=== PATIENT | male | born 1940 | race Caucasian/White ===

== ENCOUNTER 2017-06-06 08:25 | Emergency (ER) | payer MEDICARE, OTHER ==
--- NOTE | 2017-06-06 08:37 | UC ---
Throat Pain/Nasal Del HPI - HPI Summary HPI Summary: 76 year old female presents with complains of sore throat and and right ear pain. - History of Current Complaint Chief Complaint: UCRespiratory Stated Complaint: ST, RIGHT EAR ACHE, HEADACHE Time Seen by Provider: 06/06/17 08:36 Hx Obtained From: Patient Onset/Duration: Sudden Onset Severity: Moderate - Allergies/Home Medications Allergies/Adverse Reactions: Allergies Allergy/AdvReac Type Severity Reaction Status Date / Time Propoxyphene [From Darvon] Allergy Severe THROAT Verified 06/06/17 08:31 CLOSED, CHEST PAIN Home Medications: Home Medications Aspirin [Aspirin 81 MG TAB] 1 tab DAILY 06/06/17 [History Confirmed 06/06/17] Calcitriol CAP* [Rocaltrol CAP*] 1 tab TID 06/06/17 [History Confirmed 06/06/17 ] Diclofenac 1.3% PATCH (NF) [Flector 1.3% PATCH (NF)] 1 patch BID PRN 06/06/17 [ History Confirmed 06/06/17] Evolocumab [Repatha] 1 inj SEE INSTRUCTIONS 06/06/17 [History Confirmed 06/06/17 ] Ezetimibe TAB* [Zetia TAB*] 1 tab DAILY 06/06/17 [History Confirmed 06/06/17] Gabapentin CAP(*) [Neurontin 100 mg CAP(*)] 100 mg TID 06/06/17 [History Confirmed 06/06/17] Omeprazole CAP* [Prilosec CAP* 20 MG] 40 mg DAILY 06/06/17 [History Confirmed ] Ramipril CAP* [Altace CAP*] 1 tab DAILY 06/06/17 [History Confirmed 06/06/17] Tamsulosin CAP* [Flomax CAP*] 1 tab DAILY 06/06/17 [History Confirmed 06/06/17] PMH/Surg Hx/FS Hx/Imm Hx Previously Healthy: Yes - Surgical History Surgical History: Yes Surgery Procedure, Year, and Place: RIGHT NEPHRECTOMY, ENRIQUE HERNIA REPAIR. RIGHT 5TH FINGER TENDON REPAIR. LEFT KNEE REPLACEMENT. cholecystectomy 2013 - Social History Substance Use Type: None Review of Systems Constitutional: Negative Skin: Negative Eyes: Negative ENT: Sore Throat, Ear Ache - right ear, Sinus Congestion, Sinus Pain/Tenderness Respiratory: Negative Cardiovascular: Negative Gastrointestinal: Negative Genitourinary: Negative Motor: Negative Neurovascular: Negative Musculoskeletal: Negative Neurological: Negative Psychological: Negative All Other Systems Reviewed And Are Negative: Yes Physical Exam Triage Information Reviewed: Yes Vital Signs Reviewed: Yes Eye Exam: Normal ENT: Positive: Pharyngeal erythema, Nasal congestion, Nasal drainage, Sinus tenderness Dental Exam: Normal Neck exam: Normal Neck: Positive: 1 Respiratory Exam: Normal Cardiovascular Exam: Normal Abdominal Exam: Normal Musculoskeletal Exam: Normal Neurological Exam: Normal Psychological Exam: Normal Skin Exam: Normal Throat Pain/Nasal Course/Dx - Differential Dx/Diagnosis Provider Diagnoses: sinusitis. pharyngeal erythema. right ear middle moderate effusion Discharge - Discharge Plan Condition: Stable Disposition: HOME Prescriptions: Azithromyxin GRAYSON (NF) [Z-Grayson (Zithromax) 250 mg tabs #6] 2 tab PO .TODAY, THEN 1 DAILY #6 tab Guaifenesin-Codeine [Cheratussin AC] 1 teasp PO BEDTIME PRN #120 ml MDD 5 ml PRN Reason: Cough Magic M W2 Prem/Maal/Nyst/Lido* 5 ml SWISH SPIT QID PRN #120 ml PRN Reason: Sore Throat Methylprednisolone [Medrol Dosepak 4 MG*] 4 mg PO .SEE GRAYSON INSTRUCTION #21 tab Patient Education Materials: Uvulitis (ED) Referrals: Ofelia Frias MD [Primary Care Provider] -
[2017-06-06 08:38] VITALS: BP 156/76
== END 2017-06-06 09:22 | disposition home or self-care (01) ==
LOC: UCCORT 08:25
DX: J32.9 Chronic sinusitis, unspecified (principal); J39.2 Other diseases of pharynx; H65.199 Other acute nonsuppurative otitis media, unspecified ear
CPT/HCPCS: 87651; 99212; G0463

== ENCOUNTER 2017-11-14 13:55 | Emergency (ER) | payer MEDICARE, OTHER ==
[2017-11-14 15:53] VITALS: BP 136/72
[2017-11-14] MEDS ORDERED: HYDROcodone/ACETAMIN 5-325 MG* 1 TAB PO ONE (15:59)
--- NOTE | 2017-11-14 16:25 | RAD ---
INDICATION: Right humerus injury. TECHNIQUE: 2 views of the right humerus were obtained. FINDINGS: The bones are in normal alignment. No fracture is seen. IMPRESSION: NO EVIDENCE FOR FRACTURE.
--- NOTE | 2017-11-14 17:25 | RAD ---
INDICATION: Right shoulder injury. TECHNIQUE: 4 views of the right shoulder were obtained. FINDINGS: The bones are in normal alignment. No acute fracture is seen. There is a small calcific density adjacent to the inferior portion of the good glenoid process of the scapula likely representing an old fracture fragment. There is moderate to severe osteoarthritic change in the acromioclavicular joint and moderate osteoarthritic change in the glenohumeral joint. IMPRESSION: 1. NO EVIDENCE FOR FRACTURE. 2. MODERATE TO SEVERE OSTEOARTHRITIC CHANGE.
--- NOTE | 2017-11-14 17:40 | UC ---
Upper Extremity HPI - HPI Summary HPI Summary: Patient was swatting a fly a couple hours prior to arrival is sudden onset of pain in his right bicep does have a large mass in the center of his lower third of his right bicep. Patient has full range of motion in his elbow does have motion in his shoulder but is unable to hold his arm up has pain both in the shoulder rotator cuff area as well as the distal bicep tendon. Neuro motor and circulation intact distally - History of Current Complaint Chief Complaint: UCUpperExtremity Stated Complaint: RT UPPER ARM INJURY Time Seen by Provider: 11/14/17 15:59 Hx Obtained From: Patient ?: No Onset/Duration: Sudden Onset, Lasting Days, Still Present Severity Initially: Moderate Severity Currently: Moderate Location Of Pain: Is Discrete @ - History is as Character: Aching, Throbbing Aggravating Factor(s): Movement - Were 1 work with 1 here Alleviating Factor(s): Nothing Associated Signs And Symptoms: Positive: Swelling, Bruising Related History: Dominant Hand Right - Allergies/Home Medications Allergies/Adverse Reactions: Allergies Allergy/AdvReac Type Severity Reaction Status Date / Time propoxyphene [From Darvon] Allergy Anaphylatic Verified 11/14/17 15:58 Shock Home Medications: Home Medications Acetaminophen [Tylenol Extra Strength] 1,000 mg PO DAILY 11/14/17 [History Confirmed 11/14/17] PMH/Surg Hx/FS Hx/Imm Hx Previously Healthy: No Cardiovascular History: Hypertension GI/ History: Gastroesophageal Reflux - Surgical History Surgical History: Yes Surgery Procedure, Year, and Place: RIGHT NEPHRECTOMY, ENRIQUE HERNIA REPAIR. RIGHT 5TH FINGER TENDON REPAIR. LEFT KNEE REPLACEMENT. cholecystectomy 2013 - Family History Known Family History: Positive: Unknown - Social History Occupation: Retired Lives: With Family Alcohol Use: Daily Substance Use Type: None Smoking Status (MU): Former Smoker - Immunization History Most Recent Influenza Vaccination: 2017 Most Recent Pneumonia Vaccination: 07/14/16 Review of Systems Constitutional: Negative Skin: Negative Eyes: Negative ENT: Negative Respiratory: Negative Cardiovascular: Negative Gastrointestinal: Negative Genitourinary: Negative Motor: Negative Neurovascular: Negative Musculoskeletal: Negative, Arthralgia, Myalgia Neurological: Negative Psychological: Negative Is Patient Immunocompromised?: No All Other Systems Reviewed And Are Negative: Yes Physical Exam Triage Information Reviewed: Yes Appearance: Well-Appearing, No Pain Distress, Well-Nourished Vital Signs: Initial Vital Signs Temp 98.5 F 11/14/17 15:48 Pulse 78 11/14/17 15:48 Resp 18 11/14/17 15:48 BP 136/72 11/14/17 15:48 Pulse Ox 97 11/14/17 15:48 Vital Signs Reviewed: Yes Eye Exam: Normal Eyes: Positive: Conjunctiva Clear ENT Exam: Normal ENT: Positive: Normal ENT inspection, Hearing grossly normal. Negative: Hoarse voice, Dental tenderness, Sinus tenderness Dental Exam: Normal Neck exam: Normal Neck: Positive: Supple, Nontender, No Lymphadenopathy Respiratory Exam: Normal Respiratory: Positive: Chest non-tender, No respiratory distress, No accessory muscle use Cardiovascular Exam: Normal Cardiovascular: Positive: RRR, Brisk Capillary Refill Musculoskeletal Exam: Other Musculoskeletal: Positive: Strength Limited @ - right arm, Other: - unable to hold right arm up, tender right shoulder and right elbow Neurological Exam: Normal Neurological: Positive: Alert, Muscle Tone Normal Psychological Exam: Normal Skin Exam: Normal Diagnostics - Radiology No standard instances Xray Interpretation: No Acute Changes Radiology Interpretation Completed By: Radiologist Upper Extremity Course/Dx - Course Course Of Treatment: sling ice pain control follow with orthopedic MD on Thursday - Differential Dx/Diagnosis Provider Diagnoses: right upper arm tendon rupture , bicep tendon rupture Discharge - Sign-Out/Discharge Documenting (check all that apply): Discharge/Admit/Transfer - Discharge Plan Condition: Stable Disposition: HOME Prescriptions: Hydrocodone/Acetaminophen [Hydrocodone-Acetamin 5-325 mg] 1 each PO Q6HR PRN # 16 tablet MDD 4 PRN Reason: pain Patient Education Materials: How to Use a Sling (ED), R.I.C.E. Treatment (ED), Tendon Rupture (ED) Referrals: Ofelia Frias MD [Primary Care Provider] - If Needed Kenneth Cheung MD [Medical Doctor] - 2 Days - Billing Disposition and Condition Condition: STABLE Disposition: HOME
== END 2017-11-14 17:47 | disposition home or self-care (01) ==
LOC: UCCORT 13:55
DX: S46.211A Strain of muscle, fascia and tendon of other parts of biceps, right arm, initial encounter (principal); X50.0XXA Overexertion from strenuous movement or load, initial encounter; Y93.89 Activity, other specified; Y92.9 Unspecified place or not applicable; I10 Essential (primary) hypertension; Z87.891 Personal history of nicotine dependence
CPT/HCPCS: 99213; G0463